=== PATIENT | female | born 1985 | race Two or more races ===

== ENCOUNTER → 2019-10-21 | Outpatient (CLI) | payer OTHER | END | disposition home or self-care (01) | LOC: NST 14:53 | DX: N93.0 Postcoital and contact bleeding (principal); Z34.82 Encounter for supervision of other normal pregnancy, second trimester ==

== ENCOUNTER 2020-01-11 10:31 | Outpatient (CLI) | payer OTHER | END 2020-01-11 10:55 | disposition home or self-care (01) | LOC: NUCLEAR 10:31 | PROVIDERS: ATTEND Obstetrics & Gynecology | DX: I82.421 Acute embolism and thrombosis of right iliac vein (principal) ==

== ENCOUNTER 2020-01-19 11:52 | Outpatient (CLI) | payer OTHER | END 2020-01-19 14:08 | disposition home or self-care (01) | LOC: NST 11:52 | PROVIDERS: ATTEND Obstetrics & Gynecology Maternal & Fetal Medicine | DX: O32.1XX1 Maternal care for breech presentation, fetus 1 (principal) ==

== ENCOUNTER 2020-01-19 12:07 | Inpatient (IN) | payer OTHER ==
[~2020-01-19] VITALS: Ht 170.2 cm; Wt 90.7 kg
[2020-01-26] MEDS ORDERED: SINGULAIR10 MG PO (14:15)
[2020-01-26] MEDS ORDERED: FLONASE (14:16)
[2020-01-26] MEDS ORDERED: SYNTHROID50 MCG PO (14:17)
[2020-01-26] MEDS ORDERED: PULMOCORT PO (14:17)
[2020-02-12] MEDS ORDERED: MILLIPRED5 MG PO (20:12)
== END 2020-02-15 11:05 | disposition home or self-care (01) | DRG 788 ==
LOC: OB/GYN 02-02 11:30 → SURG-SUITE 02-12 19:30 → LDR 02-12 19:30 → SURG-SUITE 02-12 23:06 → OB/GYN 02-16 11:30
PROVIDERS: Obstetrics & Gynecology; ADMIT Obstetrics & Gynecology Maternal & Fetal Medicine; ATTEND Obstetrics & Gynecology Maternal & Fetal Medicine
PROC: 4A1HXCZ Monitoring of Products of Conception, Cardiac Rate, External Approach (ICD-10-PCS; 2020-02-12)
PROC: 10D00Z1 Extraction of Products of Conception, Low, Open Approach (ICD-10-PCS; principal; 2020-02-12 19:00)
DX: O99.824 Streptococcus B carrier state complicating childbirth (principal); Z3A.39 39 weeks gestation of pregnancy; Z37.0 Single live birth; Z20.828 Contact with and (suspected) exposure to other viral communicable diseases

== ENCOUNTER 2020-01-21 09:48 | Outpatient (CLI) | payer OTHER | END 2020-01-21 11:05 | disposition home or self-care (01) | LOC: NST 09:48 | PROVIDERS: ATTEND Obstetrics & Gynecology Maternal & Fetal Medicine | DX: Z34.83 Encounter for supervision of other normal pregnancy, third trimester (principal) ==

== ENCOUNTER → 2020-01-26 | Outpatient (CLI) | payer OTHER ==
[~2020-01-26] MED LIST: FLONASE; PULMOCORT PO; SINGULAIR10 MG PO; SYNTHROID50 MCG PO
== END | disposition home or self-care (01) ==
LOC: NST 15:43
PROVIDERS: ATTEND Obstetrics & Gynecology Maternal & Fetal Medicine
DX: Z34.83 Encounter for supervision of other normal pregnancy, third trimester (principal)

== ENCOUNTER 2020-02-03 10:23 | Outpatient (CLI) | payer OTHER | END 2020-02-03 11:17 | disposition home or self-care (01) | LOC: NST 10:23 | PROVIDERS: ATTEND Obstetrics & Gynecology | DX: Z34.83 Encounter for supervision of other normal pregnancy, third trimester (principal) ==

== ENCOUNTER 2020-02-11 13:59 | Outpatient (CLI) | payer OTHER ==
[2020-02-12] MEDS ORDERED: MILLIPRED5 MG PO (20:12)
== END 2020-02-11 16:32 | disposition home or self-care (01) ==
LOC: NST 13:59
PROVIDERS: ATTEND Obstetrics & Gynecology
DX: Z34.83 Encounter for supervision of other normal pregnancy, third trimester (principal)